=== PATIENT | male | born 1935 | race Caucasian/White ===

== ENCOUNTER 2017-10-01 18:54 | Inpatient (IN) | payer MEDICARE, BC ==
[~2017-10-01] VITALS: Ht 172.7 cm; Wt 99.8 kg
--- NOTE | 2017-10-01 19:21 | NUR ---
Assumed care of patient. no acute distress noted. All patient needs attended and met. Call light is within reach. Will continue to monitor patient.
[2017-10-01] MEDS ORDERED: IPRATROPIUM BROMIDE 0.5 MG/2.5 ML NEBU NEB ONE (19:30)
[2017-10-01] MEDS ORDERED: methylPREDNISolone SOD SUCC 125 MG/2 ML VIAL IV ONE (19:30)
[2017-10-01] MEDS ORDERED: ALBUTEROL SULFATE 2.5 MG/3 ML NEBU NEB ONE (19:30)
[2017-10-01 19:32] LABS: ABG HCO3 32.8 mmol/L; ABG PCO2 100.8 mmHg (35.0-45.0); ABG PO2 328.8 mmHg (75.0-100.0); ABG SITE LEFT RADIAL; ABG TOTAL HEMOGLOBIN 15.3 G/dL (13.5-18.0); COHb 2.1 % (0.5-1.5); MetHb 0.2 % (0.0-1.5); O2Hb 97.4 % (94.0-97.0)
[2017-10-01 19:57] LABS: BASOPHILS % (AUTO) 0.3 % (0.0-2.0)
[2017-10-01 20:04] LABS: MEAN CORPUSCULAR HGB CONC 33 g/dL (32.5-36.3)
[2017-10-01 20:34] LABS: CARBON DIOXIDE 36 mmol/L (21-32); CHLORIDE 105 mmol/L (98-107); CREATININE 1.5 mg/dL (0.6-1.3); GLUCOSE 144 mg/dL (74-106); POTASSIUM 4.3 mmol/L (3.5-5.1); UREA NITROGEN, BLOOD 35 mg/dL (7-18)
[2017-10-01 20:36] LABS: HEMATOCRIT 43.9 % (36.7-47.1); HEMOGLOBIN 14.5 g/dL (12.5-16.3); LYMPHOCYTES # (AUTO) 0.6 K/uL (20.0-40.0); LYMPHOCYTES % (AUTO) 9.7 % (20.5-51.5); MEAN CORPUSCULAR HEMOGLOBIN 32.8 uug (23.8-33.4); MEAN CORPUSCULAR VOLUME 99.5 fL (73.0-96.2); MONOCYTES # (AUTO) 0.8 K/uL (2.0-10.0); MONOCYTES % (AUTO) 13.9 % (0.0-11.0); NEUTROPHILS # (AUTO) 4.3 K/uL (1.8-8.9); NEUTROPHILS % (AUTO) 76.1 % (38.5-71.5); PLATELET COUNT (AUTO) 138 K/uL (152-348); RED BLOOD CELL COUNT(AUTO) 4.41 MIL/uL (4.06-5.63); WHITE BLOOD COUNT (AUTO) 5.7 K/uL (3.6-10.2)
[2017-10-01 20:46] LABS: ALANINE AMINOTRANSFERASE 36 U/L (16-63); ALKALINE PHOSPHATASE 102 U/L (50-136); ASPARTATE AMINOTRANSFERASE 31 U/L (15-37); BILIRUBIN,DIRECT 0.2 mg/dL (0.0-0.2); BILIRUBIN,TOTAL 0.3 mg/dL (0.2-1.0); TOTAL PROTEIN, SERUM 7.1 g/dL (6.4-8.2)
[2017-10-01] MEDS ORDERED: methylPREDNISolone SOD SUCC 125 MG/2 ML VIAL ONE (21:30)
[2017-10-01] MEDS ORDERED: ALBUTEROL SULFATE 2.5 MG/3 ML NEBU ONE (21:46)
[2017-10-01] MEDS ORDERED: IPRATROPIUM BROMIDE 0.5 MG/2.5 ML NEBU ONE (21:46)
[2017-10-01] MEDS ORDERED: ALBUTEROL SULFATE 2.5 MG/ 0.5 ML NEBU ONE (21:47)
[2017-10-01 22:05] LABS: ABG BASE EXCESS -1.3 mmol/L; ABG HCO3 31.5 mmol/L; ABG PCO2 99.4 mmHg (35.0-45.0); ABG PH 7.119 (7.350-7.450); ABG PO2 136.1 mmHg (75.0-100.0); ABG SITE RIGHT RADIAL; ABG TOTAL HEMOGLOBIN 15.3 G/dL (13.5-18.0); COHb 1.9 % (0.5-1.5); MetHb 0.3 % (0.0-1.5); O2Hb 95.7 % (94.0-97.0); VENT MODE BIPAP
[2017-10-01] MEDS ORDERED: IV D5 1/2 NS 1000 ML 1,000 ML IV PRN (23:39)
[2017-10-01] MEDS ORDERED: MORPHINE SULFATE 2 MG/1 ML DISP.SYRIN IV PRN (23:45)
[2017-10-01] MEDS ORDERED: IPRATROPIUM BROMIDE 0.5 MG/2.5 ML NEBU NEB PRN (23:45)
[2017-10-01] MEDS ORDERED: ONDANSETRON 4 MG/2 ML VIAL IV PRN (23:45)
[2017-10-01] MEDS ORDERED: ACETAMINOPHEN 650 MG SUPP.RECT RC PRN (23:45)
[2017-10-01] MEDS ORDERED: ALBUTEROL SULFATE 2.5 MG/3 ML NEBU NEB PRN (23:45)
[2017-10-02] MEDS ORDERED: methylPREDNISolone SOD SUCC 125 MG/2 ML VIAL IV SCH
--- NOTE | 2017-10-02 01:21 | NUR ---
Family at bedside, no acute distress noted. perineal care provided to patient.
--- NOTE | 2017-10-02 03:43 | NUR ---
Patient in bed, no acute distress noted. All patient needs attended and met. Bi-pap well tolerated. RT at bedside.
--- NOTE | 2017-10-02 04:35 | NUR ---
Patient in bed, family at bedside. No acute distress noted. RT at bedside. Will continue to monitor patient.
--- NOTE | 2017-10-02 05:30 | NUR ---
pATIENT IN BED, BIPAP IN PLACE. NO ACUTE DISTRESS NOTED. RESPIRATIONS EVEN AND ASSISTED WITH BIPAP. WILL CONTINUE TO MONITOR PATIENT.
[2017-10-02 06:05] LABS: ABG BASE EXCESS 3.6 mmol/L; ABG HCO3 38.9 mmol/L; ABG PCO2 134.1 mmHg (35.0-45.0); ABG PO2 70.3 mmHg (75.0-100.0); ABG SITE LEFT RADIAL; ABG TOTAL HEMOGLOBIN 15.3 G/dL (13.5-18.0); COHb 1.8 % (0.5-1.5); MetHb 0.2 % (0.0-1.5); VENT MODE BIPAP
--- NOTE | 2017-10-02 06:34 | NUR ---
pATIENT IN BED, RT AT BEDSIDE.
--- NOTE | 2017-10-02 07:10 | NUR ---
Report given to Lizzeth FAYE. Patient in bed, no acute distress noted. Family at bedside.
--- NOTE | 2017-10-02 08:00 | NUR ---
RECEIVED REPORT. PT NON-VERBAL. DOES NOT FOLLOW COMMAND. PERRLA PUPIL SIZE4 MM. ON BIPAP AT 60% RATE 25 19/5. BREATH SOUND ARE DIMINISHED ON BOTH SIDE. SAO2 94%. +LAST BM 10/01/17. BS ABDOMEN ROUND NONTENDER. INCONTINENT OF URINE AND BM. SKIN VERY DRY. BRUSE ON HEAD FROM FALL AT HOME . NO OPEN SKIN FOUND. B/L LOWER LEG DRY/STASIS FROM PVD. HX: OF DM TYPE 2,ASHMA POSSIBLE COPD(RETAINER) FROM ABG RESULTS. PCO2 ELEVATED. NOT IN ANY ACUTE DISTRESS. CONTINUE TO MONITOR.
[2017-10-02] MEDS ORDERED: PANTOPRAZOLE SODIUM 40 MG VIAL IV SCH (08:32)
[2017-10-02] MEDS ORDERED: MORPHINE SULFATE 4 MG/1 ML DISP.SYRIN IV PRN (08:37)
[2017-10-02] MEDS ORDERED: ENOXAPARIN SODIUM 40 MG/0.4 ML DISP.SYRIN SQ SCH (09:00)
[2017-10-02] MEDS ORDERED: LEVOFLOXACIN 750MG/D5W 750 MG in PREMIXED 1 EACH IV SCH (09:00)
--- NOTE | 2017-10-02 09:01 | NUR ---
REPORT GIVEN TO NEYDA BEDOAY.
--- NOTE | 2017-10-02 09:02 | NUR ---
Report received from Lizzeth FAYE, there is no change in pt's condition, pending FAROOQ bed assignment and admission, NAD noted at this time, pharmacy called for pt's medications.
[2017-10-02] MEDS ORDERED: SODIUM BICARBONATE 8.4% 50 MEQ in IV D5W 1000ML 1,000 ML IV PRN (09:30)
[2017-10-02] MEDS ORDERED: ENOXAPARIN SODIUM 40 MG/0.4 ML DISP.SYRIN SQ ONE (10:48)
[2017-10-02] MEDS ORDERED: PANTOPRAZOLE SODIUM 40 MG VIAL ONE (10:48)
[2017-10-02] MEDS ORDERED: LEVOFLOXACIN 750MG/D5W 150 ML IV ONE (10:49)
[2017-10-02] MEDS: methylPREDNISolone SOD SUCC 40 MG/ML VIAL IV SCH ×2 (12:00→17:28)
--- NOTE | 2017-10-02 12:30 | NUR ---
RECEIVED REPORT. ASSUMED CARE. NO C/O PAIN. NO CHEST PAIN. NO NONVERBAL S/S PAIN. DROPLET PRECAUTIONS FOR FLU A. ON BIPAP MASK. FAMILY AT BEDSIDE. IV INFUSING. PATENT. ASSESSMENT. MONITORING.
[2017-10-02] MEDS: MORPHINE SULFATE 2 MG/1 ML DISP.SYRIN IV SCH ×2 (12:45→15:45)
[2017-10-02] MEDS: LORAZEPAM 2 MG/1 ML VIAL IV SCH ×2 (12:45→15:45)
--- NOTE | 2017-10-02 12:45 | NUR ---
PRUITT CATHETER INSERTION. TOLERATED. NO A/E NOTED.
[2017-10-02] MEDS ORDERED: MORPHINE SULFATE 4 MG/1 ML DISP.SYRIN ONE (12:53)
[2017-10-02] MEDS ORDERED: LORAZEPAM 2 MG/1 ML VIAL ONE (12:54)
--- NOTE | 2017-10-02 13:00 | NUR ---
FAMILY SPOKE WITH DR. Tuan KERR. PATIENT'S WISHES ARE TO CONTINUE DNR AND DOES NOT WISH TO BE ON BIPAP. MD ORDERED FOR MORPHINE 2MG AND LORAZEPAM 1MG 15-20 PRIOR TO REMOVAL OF MASK. FAMILY IS WAITING FOR "REST OF THE FAMILY MEMBERS." CONTINUES ON BIPAP.
--- NOTE | 2017-10-02 13:45 | NUR ---
ADMINISTERED 2MG MORPHINE AND 1 MG LORAZEPAM.
--- NOTE | 2017-10-02 14:00 | NUR ---
BIPAP MASK REMOVED PER RT. FAMILY IS AWARE RE: POSSIBLE OUTCOMES. MONITORING.
--- NOTE | 2017-10-02 14:20 | NUR ---
140, 121/69, 98.0, 78, 93% ON NASAL CANNULA (1LITER), NO PAIN, NO NONVERBAL S/S PAIN.
--- NOTE | 2017-10-02 15:45 | NUR ---
SECOND DOSE OF MORPHINE AND LORAZEPAM HELD. PATIENT IS CALM, NO TACHYPNEA, NO DISTRESS NOTED. FAMILY ALSO REQUESTING TO HOLD MORPHINE AND LORAZEPAM.
--- NOTE | 2017-10-02 16:53 | NUR ---
122/47, 97.0, O2 SAT 68%, P120, R10, ANDI TURNER RESP. FAMILY IN ROOM.
--- NOTE | 2017-10-02 18:21 | NUR ---
P 76, 02 SAT 60%, BP 35/21, RESP 5. PALE. LEGS MOTTLED. AGONAL BREATHING. NO FACIAL GRIMACE. NO NONVERBAL S/S PAIN.
--- NOTE | 2017-10-02 19:04 | NUR ---
NO BP READING, RESP 2, HR 6, NO O2 SAT READING.FAMILY IN ROOM
--- NOTE | 2017-10-02 19:40 | NUR ---
Patient pronounced by Guillermo Dunham
--- NOTE | 2017-10-02 20:20 | NUR ---
[facility] contacted.
--- NOTE | 2017-10-03 13:33 | NUR ---
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
== END 2017-10-02 19:40 | disposition expired | DRG 189 ==
LOC: EDBD 18:55 → ER 18:55 → TRANSITION 10-02 08:23
PROC: 5A09357 Assistance with Respiratory Ventilation, Less than 24 Consecutive Hours, Continuous Positive Airway Pressure (ICD-10-PCS; principal; 2017-10-01)
DX: J96.01 Acute respiratory failure with hypoxia (principal); N17.0 Acute kidney failure with tubular necrosis; Z66 Do not resuscitate; Z51.5 Encounter for palliative care; I21.A1 Myocardial infarction type 2; G93.41 Metabolic encephalopathy; G93.1 Anoxic brain damage, not elsewhere classified; E88.09 Other disorders of plasma-protein metabolism, not elsewhere classified; M48.02 Spinal stenosis, cervical region; J98.11 Atelectasis; I50.9 Heart failure, unspecified; J96.02 Acute respiratory failure with hypercapnia; Z87.891 Personal history of nicotine dependence; F03.90 Unspecified dementia, unspecified severity, without behavioral disturbance, psychotic disturbance, mood disturbance, and anxiety; I11.0 Hypertensive heart disease with heart failure; E11.9 Type 2 diabetes mellitus without complications; M48.10 Ankylosing hyperostosis [Forestier], site unspecified; Z86.73 Personal history of transient ischemic attack (TIA), and cerebral infarction without residual deficits
CPT/HCPCS: 36415; 36569; 36600; 70030-TC; 70450; 71045; 72125; 83605; 85025; 87040; 87400; 93005; 93307; A4663; C9113; J1650; J1956; J2060; J2270; J2930; J3490; J3590; J7070